=== PATIENT | female | born 1965 | race Caucasian/White ===

== ENCOUNTER → 2017-05-12 | Outpatient (CLI) | payer OTHER ==
[~2017-05-12] MED LIST: ADDE10 PO; DIAZ5TAB PO
[2017-05-12 13:59] LABS: BILIRUBIN, URINE NEG (NEG); BLOOD, URINE NEG (NEG); GLUCOSE,URINE NEG (NEG); KETONE, URINE NEG (NEG); MUCUS URINE FEW /lpf (OCC); NITRITE,URINE NEG (NEG); PH, URINE 5.5 (5.0-8.5); URINE COLOR LIGHT-YELLOW (YELLW/STRAW); URINE LEUKOCYTE ESTERASE NEG (NEG)
[2017-05-12 14:03] LABS: AUTOMATED NEUTROPHIL # 3.4 TH/MM3 (1.8-7.7); BASOPHIL % 0.7 % (0.0-2.0); EOSINOPHIL # 0.1 TH/MM3 (0-0.4); EOSINOPHIL % 1.7 % (0.0-4.0); HEMATOCRIT 39.8 % (35.0-46.0); HEMOGLOBIN 13.8 GM/DL (11.6-15.3); LYMPH % 36.2 % (9.0-44.0); LYMPHOCYTE # 2.3 TH/MM3 (1.0-4.8); MEAN CELL VOLUME 86.3 FL (80.0-100.0); MEAN CORPUSCULAR HEMOGLOBIN 29.9 PG (27.0-34.0); MEAN CORPUSCULAR HGB CONC 34.6 % (32.0-36.0); MEAN PLATELET VOLUME 7.6 FL (7.0-11.0); MONO % 6.7 % (0.0-8.0); MONOCYTE # 0.4 TH/MM3 (0-0.9); NEUT % 54.7 % (16.0-70.0); PLATELET COUNT 283 TH/MM3 (150-450); RED BLOOD COUNT 4.61 MIL/MM3 (4.00-5.30); RED CELL DISTRIBUTION WIDTH 13.3 % (11.6-17.2); WHITE BLOOD COUNT 6.3 TH/MM3 (4.0-11.0)
--- NOTE | 2017-05-14 01:13 | EKG ---
Date Performed: 05/12/2017 Time Performed: 13:55:43 PTAGE: 51 years EKG: Sinus rhythm POSSIBLE LEFT ATRIAL ENLARGEMENT BORDERLINE ECG PREVIOUS TRACING : 11/11/2000 10.44 Since the prior tracing, there has been no significant [place] DOCTOR: Juan Ventura Interpretating Date/Time 05/14/2017 01:12:45
== END ==
LOC: CPRE 13:26
PROVIDERS: ATTEND Obstetrics & Gynecology
DX: Z01.810 Encounter for preprocedural cardiovascular examination (principal); Z01.812 Encounter for preprocedural laboratory examination; D25.9 Leiomyoma of uterus, unspecified; N92.1 Excessive and frequent menstruation with irregular cycle; N94.6 Dysmenorrhea, unspecified; N83.201 Unspecified ovarian cyst, right side; R94.31 Abnormal electrocardiogram [ECG] [EKG]
CPT/HCPCS: 36415; 81001; 84702; 85025; 93005

== ENCOUNTER 2017-05-14 12:41 | Observation (INO) | payer OTHER ==
[~2017-05-14] VITALS: Ht 162.6 cm; Wt 75.0 kg
--- NOTE | 2017-05-14 08:14 | MH ---
cc: CRISTIANA PINO MD DATE OF ADMISSION 05/14/2017 ADMISSION DIAGNOSIS Menorrhagia, dysmenorrhea with uterine fibroids and ovarian cyst. HISTORY OF PRESENT ILLNESS The patient is a 51-year-old single white female para 1-0-0-1 with a one-year history of increasing menstrual pain, menstrual flow refractory to medical therapy. Her most recent ultrasound from 02/04/2017 showed fibroids with complex cyst on the right ovary. Her initial biopsy from 04/18/17 is benign. She has failed to respond to analgesia therapy and is now admitted for surgical evaluation. PAST MEDICAL HISTORY 1. T&A in childhood. 2. Deviated septum age 21 3. Laparoscopic tubal 1990 at age 36 MEDICATIONS 1. Vitamins 2. Analgesics. ALLERGIES None TRANSFUSIONS None. OBSTETRICAL HISTORY Vaginal delivery 1992, a daughter SOCIAL HISTORY She is employed at [employer]. Alcohol occasional, tobacco intermittent, drugs none. FAMILY HISTORY Noncontributory. PHYSICAL EXAMINATION GENERAL: A well-nourished, well-developed white female. VITAL SIGNS: Stable. HEENT: Exam normal. CHEST: Clear. HEART: Regular rate BREASTS: Symmetrical ABDOMEN: Benign. PELVIC: Normal external genitalia and BUS. Vagina is normal. Cervix normal. Uterus enlarged about 12-14 weeks' size with no descent. Adnexa non-palpable. ASSESSMENT She is now admitted for laparoscopy with planned LASH BSO, possible JUAN-BSO. While in the office, I explained the procedure, the risks, benefits and complications. The patient would like to proceed. MD JENNYFER Joseph/ /7:27 PM /8:08 AM
[~2017-05-14 12:41] MED LIST changes: +DEXAMETHASONE SOD PHOS 4 MG/ML VIAL IV ONE; +GLYCOPYRROLATE 1 MG/5 ML SYRINGE IV PUSH ONE; +KETOROLAC TROMETHAMINE 30 MG/ML (IVP) VIAL IV PUSH ONE; +LIDOCAINE HCL 1% PF 5 ML SYRINGE OTHER ONE; +NEOSTIGMINE 5 MG/5 ML SYRINGE IV PUSH ONE; +ONDANSETRON HCL 4 MG/2 ML VIAL IV ONE; +PROPOFOL 200 MG/20 ML AMP IV ONE; +ROCURONIUM INJ 50 MG/5 ML SYRINGE IV PUSH ONE; +SODIUM CHLORIDE 0.9% 20 ML VIAL IV ONE
[2017-05-14] MEDS ORDERED: SODIUM CHLORID 0.9% 500 ML IV PRN (13:15)
[2017-05-14] MEDS ORDERED: ceFAZolin 2 GM PREMIX 50 ML IV SCH (13:15)
[2017-05-14] MEDS ORDERED: POVIDONE IODINE 5% (ANTISEPSIS KIT) 4 APPLICATIONS EACH NARE PRN (13:15)
[2017-05-14] MEDS ORDERED: CHLORHEXIDINE GLUCONATE 2 % 1 PACK (2 CLOTHS) TOPICAL PRN (13:15)
[2017-05-14] MEDS ORDERED: LACTATED RINGER'S 1000 ML IV PRN (13:15)
[2017-05-14] MEDS ORDERED: METOPROLOL TARTRATE 25 MG TAB PO PRN (13:15)
[2017-05-14] MEDS ORDERED: ACETAMINOPHEN 1000 MG/100 ML 100 ML IV SCH (13:30)
[2017-05-14] MEDS ORDERED: BUPIVACAINE LIPOSOME PF 1.3% 20 ML VIAL ONE (15:00)
[2017-05-14] MEDS ORDERED: HYDROmorphone HCL PF 1 MG/ML VIAL IV PUSH PRN (16:45)
[2017-05-14] MEDS ORDERED: PROMETHAZINE INJ 25 MG/ML VIAL IM PRN (16:45)
[2017-05-14] MEDS ORDERED: ONDANSETRON HCL 4 MG/2 ML VIAL IV PUSH PRN (16:45)
[2017-05-14] MEDS ORDERED: diphenhydrAMINE HCL 25 MG CAP PO PRN (16:45)
[2017-05-14] MEDS: DOCUSATE SODIUM 100 MG CAP PO SCH (16:45)
[2017-05-14] MEDS ORDERED: ZOLPIDEM TARTRATE 5 MG TAB PO PRN (16:45)
[2017-05-14] MEDS: KETOROLAC TROMETHAMINE 30 MG/ML (IVP) VIAL IVP SCH ×2 (17:00→23:43)
[2017-05-14] MEDS: ACETAMINOPHEN 1000 MG/100 ML VIAL IV SCH (17:00)
[2017-05-14] MEDS ORDERED: DO NOT ADM ANY ANTICOAGULANT DRUGS PRN (17:10)
[2017-05-14] MEDS ORDERED: HYDROmorphone HCL PF 2 MG/ML VIAL ONE (17:14)
[2017-05-14] MEDS ORDERED: MIDAZOLAM HCL 2 MG/2 ML VIAL ONE (17:29)
[2017-05-14] MEDS ORDERED: *morphine SULFATE 4 MG/ML PERIprocedure ONLY ONE ×3 (17:39→18:11)
[2017-05-14] MEDS: D5-1/2 NS + KCL 20 MEQ INJ 1,000 ML IV SCH (17:56)
[2017-05-14 18:44] VITALS: BP 140/79; PULSE 62; RESP 20; TEMP 97.9; O2SAT 97
[2017-05-14 19:07] LABS: HEMATOCRIT 40.4 % (35.0-46.0); HEMOGLOBIN 13.7 GM/DL (11.6-15.3)
[2017-05-14] MEDS: DIAZEPAM 5 MG TAB PO PRN (20:49)
[2017-05-14 21:05] VITALS: BP 115/77; PULSE 64; RESP 20; TEMP 97.8; O2SAT 98
[2017-05-15] VITALS: BP 112/66; PULSE 65; RESP 18; TEMP 97.3; O2SAT 100
[2017-05-15] MEDS: ACETAMINOPHEN 1000 MG/100 ML VIAL IV SCH ×2 (01:42→09:09)
[2017-05-15] MEDS: D5-1/2 NS + KCL 20 MEQ INJ 1,000 ML IV SCH (03:15)
[2017-05-15 04:00] VITALS: BP 101/65; PULSE 101; RESP 16; TEMP 97.9; O2SAT 97
[2017-05-15 05:55] LABS: AUTOMATED NEUTROPHIL # 7.2 TH/MM3 (1.8-7.7); BASOPHIL % 0.1 % (0.0-2.0); HEMOGLOBIN 12.7 GM/DL (11.6-15.3); LYMPH % 7.3 % (9.0-44.0); LYMPHOCYTE # 0.6 TH/MM3 (1.0-4.8); MEAN CELL VOLUME 87.6 FL (80.0-100.0); MEAN CORPUSCULAR HEMOGLOBIN 30.1 PG (27.0-34.0); MEAN CORPUSCULAR HGB CONC 34.4 % (32.0-36.0); MEAN PLATELET VOLUME 8.1 FL (7.0-11.0); MONO % 5.7 % (0.0-8.0); MONOCYTE # 0.5 TH/MM3 (0-0.9); NEUT % 86.9 % (16.0-70.0); PLATELET COUNT 226 TH/MM3 (150-450); RED BLOOD COUNT 4.23 MIL/MM3 (4.00-5.30); RED CELL DISTRIBUTION WIDTH 13.1 % (11.6-17.2); WHITE BLOOD COUNT 8.3 TH/MM3 (4.0-11.0)
[2017-05-15 06:25] LABS: BICARBONATE 26.8 MEQ/L (21.0-32.0); CALCIUM 8.7 MG/DL (8.5-10.1); CREATININE 0.66 MG/DL (0.50-1.00)
[2017-05-15] MEDS: KETOROLAC TROMETHAMINE 30 MG/ML (IVP) VIAL IVP SCH ×2 (06:27→12:09)
[2017-05-15] MEDS: DIAZEPAM 5 MG TAB PO PRN (06:41)
[2017-05-15] MEDS ORDERED: DEXTROAMPHETAMINE/AMPHETAMINE 10 MG TAB PO SCH (07:00)
[2017-05-15 08:00] VITALS: BP 116/71; PULSE 49; RESP 16; TEMP 98.2; O2SAT 100
--- NOTE | 2017-05-15 08:24 | HHI.DCPOC ---
Discharge Care Plan Report Symptoms to Your Doctor -Temperature above 100.5 degrees -Redness, of incision or excessive or foul smelling drainage -Unusual pain or calf pain -Increased vaginal bleeding -Painful or difficulty urinating -Feelings of extreme sadness or anxiety after 2 weeks Goals to Promote Your Health * To prevent worsening of your condition and complications * To maintain your health at the optimal level Directions to Meet Your Goals Take your medications as prescribed Follow your dietary instruction Follow activity as directed Ensure plenty of rest for recovery Drink fluids for hydration Keep your appointments as scheduled Take your immunizations and boosters as scheduled If your symptoms worsen call your PCP, if no PCP go to Urgent Care Center or Emergency Room Smoking is Dangerous to Your Health. Avoid second hand smoke Call the 24-hour crisis hotline for domestic abuse at Samir Reynolds MD May 15, 2017 08:24
[2017-05-15] MEDS: DOCUSATE SODIUM 100 MG CAP PO SCH (09:09)
--- NOTE | 2017-05-15 09:31 | MP ---
cc: CRISTIANA PINO DATE OF SURGERY: 05/14/2017 PREOPERATIVE DIAGNOSIS Menorrhagia, dysmenorrhea, uterine fibroids. POSTOPERATIVE DIAGNOSIS Menorrhagia, dysmenorrhea, uterine fibroids with bilateral ovarian cysts. PROCEDURE LASH, BSO. ANESTHESIA General ET. 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 ESTIMATED BLOOD LOSS Less than 25 ccs. FLUIDS 1 liter crystalloid. OBJECTIVE FINDINGS/PROCEDURE Following induction of adequate general endotracheal anesthesia the patient was prepped and draped supine on the operating table in the dorsal lithotomy position in the usual sterile fashion with bladder being drained via Harris catheterization. The abdomen was opened through a 3 cm curving infraumbilical incision using a knife to cut down through skin to the fascia. The fascia was opened transversely. Rectus muscle was split in the midline and the peritoneum opened bluntly. The GelPort was placed. Laparoscope was inserted. A 5 port was placed in the left lower quadrant and a AirSeal on the right. Findings: About 12-week size fibroid uterus. The tubes appears interruption with Falope rings. Both ovaries have small cysts. [place]-de-sacs were clear. Liver edge was normal, appendix was normal. Working first on the left harmonic scalpel was used to take the left ovarian vessels, left round ligament, left broad ligament, left-sided bladder flap, uterine vessels, same on the right. Harmonic scalpel was now used to amputate the fundus from the cervix. A pouch inserted and used to extract the uterus, tubes and ovaries in the pouch intact. Irrigation was performed. One area of bleeding on the right side of the cervix was controlled with the harmonic scalpel. Low pressure test was done and there was no bleeding. Ureters were inspected with good peristalsis. The operative site now coated with Evicel. The GelPort was removed. Peritoneum was sutured with running 2-0 Vicryl, fascia with a running locking stitch of 0-Vicryl corner to midline and tied, subcu with running 3-0 Vicryl and skin with running subcuticular 3-0 Monocryl. Scope was reinserted through the lower port site, used to inspect the GelPort site which was well closed with no entrapment of tissue. Pelvis was inspected and there was no bleeding. Scope was removed, gas was allowed to escape. Ports were removed and small wounds closed with 3-0 Monocryl. Dermabond was applied. All counts were correct and the patient was awakened and taken to the recovery room in good condition. MD JENNYFER Joseph/CRAIG /4:42 PM /9:04 AM SANDHYA
[2017-05-15 12:00] VITALS: BP 109/70; PULSE 55; RESP 16; TEMP 97.8; O2SAT 97
== END 2017-05-15 13:01 | disposition home or self-care (01) ==
LOC: HSDC 12:41 → HSDI 16:41 → H1EA 16:41 → UNDOADMIN 16:41 → UNDOADMOB 16:41 → HSDI 18:39 → H1EA 18:39 → UNDODISOB 05-15 13:01
PROVIDERS: ADMIT Obstetrics & Gynecology; ATTEND Obstetrics & Gynecology
DX: N92.0 Excessive and frequent menstruation with regular cycle (principal); N94.6 Dysmenorrhea, unspecified; D25.9 Leiomyoma of uterus, unspecified; N83.202 Unspecified ovarian cyst, left side; N83.201 Unspecified ovarian cyst, right side; N83.8 Other noninflammatory disorders of ovary, fallopian tube and broad ligament
CPT/HCPCS: 00840; 58542; 80048; 85014; 85018; 85025; 88307; 94150; 96374; 96375; 96376; C9290; G0378; J0131; J0690; J1100; J1170; J1885; J2250; J2270; J2405; J2710; J3010; J3480; J7120